=== PATIENT | female | born 1960 | race Caucasian/White ===

== ENCOUNTER 2016-11-14 17:14 | Inpatient (IN) | payer OTHER ==
[~2016-11-14] VITALS: Ht 167.6 cm; Wt 54.0 kg
[~2016-11-14 17:14] MED LIST: LORT5TAB PO; Z.0.NO CURRENT MEDS; ZOFR8TAB4 SL
[2016-11-14 17:16] VITALS: BP 145/79; PULSE 100; RESP 20; TEMP 97.4; O2SAT 98
--- NOTE | 2016-11-14 18:51 | RADRPT ---
EXAM DATE/TIME: 11/14/2016 18:37 [facility] COMPARISON: No previous studies available for comparison. INDICATIONS : Left femur pain after fall. MEDICAL HISTORY : None. SURGICAL HISTORY : None. ENCOUNTER: Initial ACUITY: 1 day PAIN SCORE: 10/10 LOCATION: Left proximal femur. FINDINGS: Two view examination of the left femur demonstrates a faint nondisplaced fracture through the supratr ochanteric region of the femur. The femoral head remains within the acetabulum. The shaft and distal femur appear to be grossly intact.. CONCLUSION: Faint nondisplaced fracture through the supratrochanteric region of the femur. Venkatesh Santos MD on November 14, 2016 at 18:48 Board Certified Radiologist. This report was verified electronically.
--- NOTE | 2016-11-14 18:58 | PD ---
HPI Chief Complaint: Fall Time Seen by Provider: 18:20 Travel History International Travel<30 days: No Contact w/Intl Traveler<30days: No Traveled to known affect area: No History of Present Illness HPI Patient is a 56-year-old female presenting to the emergency department evaluation of left hip and leg pain after sustaining a mechanical fall approximately an hour and half prior to arrival. Patient states she was walking when she tripped in a parking lot landing on her left side. She denies any head injury or loss of consciousness. She states it is painful to walk. She reports the pain as a 6 out of 10, she has not taken anything for the pain since fall happened. [facility] Past Medical History Medical History: Denies Significant Hx Menopausal: Yes Social History Alcohol Use: No Tobacco Use: Yes (ONE PACK DAILY) Allergies-Medications (Allergen,Severity, Reaction): Coded Allergies: Lortab (Verified Allergy, Severe, SWELLING, 11/14/16) Penicillin (Verified Allergy, Severe, SWELLING, 11/14/16) Reported Meds & Prescriptions Reported Meds & Active Scripts Active No Active Prescriptions or Reported Medications Review of Systems Except as stated in HPI: all other systems reviewed are Neg Musculoskeletal: Positive: Myalgias, Pain Skin: Positive Change in Pigmentation Physical Exam Narrative GENERAL: Well-developed, well-nourished, alert female. Resting comfortably in no acute distress. SKIN: Warm and dry. The most is noted to the lateral aspect of the left upper thigh. Superficial abrasions to dorsal aspect of left hand HEAD: Atraumatic. Normocephalic. EYES: Pupils equal and round. No scleral icterus. No injection or drainage. ENT: No nasal bleeding or discharge. Mucous membranes pink and moist. NECK: Trachea midline. No JVD. CARDIOVASCULAR: Regular rate and rhythm. No murmur appreciated. RESPIRATORY: No accessory muscle use. Clear to auscultation. Breath sounds equal bilaterally. GASTROINTESTINAL: Abdomen soft, non-tender, nondistended. Hepatic and splenic margins not palpable. MUSCULOSKELETAL: No obvious deformities. No clubbing. No cyanosis. Mild edema noted to the left upper thigh. 5/5 muscle strength in bilateral lower extremities. No obvious deformities noted, no leg length discrepancy noted. Patient is neurovascularly intact. NEUROLOGICAL: Awake and alert. No obvious cranial nerve deficits. Motor grossly within normal limits. Normal speech. PSYCHIATRIC: Appropriate mood and affect; insight and judgment normal. Data Data Last Documented VS Vital Signs Date Time Temp Pulse Resp B/P Pulse Ox O2 Delivery O2 Flow Rate FiO2 11/14/16 17:16 97.4 100 20 145/79 98 Room Air Orders Femur (Ap & Lat/2vws) (11/14/16 ) Hip, Uni(Ap&Lat) Wo Ap Pelvis (11/14/16 ) Complete Blood Count With Diff (11/14/16 19:08) Comprehensive Metabolic Panel (11/14/16 19:08) Act Partial Throm Time (Ptt) (11/14/16 19:08) Prothrombin Time / Inr (Pt) (11/14/16 19:08) Electrocardiogram (11/14/16 ) Chest, Single Ap (11/14/16 ) Iv Access Insert/Monitor (11/14/16 19:08) Ondansetron Inj (Zofran Inj) (11/14/16 19:30) Morphine Inj (Morphine Inj) (11/14/16 19:30) Admit Order (Ed Use Only) (11/14/16 20:06) Labs Laboratory Tests Test 11/14/16 19:20 White Blood Count 8.9 TH/MM3 Red Blood Count 4.65 MIL/MM3 Hemoglobin 15.0 GM/DL Hematocrit 42.6 % Mean Corpuscular Volume 91.6 FL Mean Corpuscular Hemoglobin 32.2 PG Mean Corpuscular Hemoglobin 35.1 % Concent Red Cell Distribution Width 12.7 % Platelet Count 217 TH/MM3 Mean Platelet Volume 8.1 FL Neutrophils (%) (Auto) 72.3 % Lymphocytes (%) (Auto) 20.6 % Monocytes (%) (Auto) 5.4 % Eosinophils (%) (Auto) 1.3 % Basophils (%) (Auto) 0.4 % Neutrophils # (Auto) 6.4 TH/MM3 Lymphocytes # (Auto) 1.8 TH/MM3 Monocytes # (Auto) 0.5 TH/MM3 Eosinophils # (Auto) 0.1 TH/MM3 Basophils # (Auto) 0.0 TH/MM3 CBC Comment DIFF FINAL Differential Comment Prothrombin Time 10.9 SEC Prothromb Time International 1.0 RATIO Ratio Activated Partial 27.1 SEC Thromboplast Time Sodium Level 140 MEQ/L Potassium Level 3.6 MEQ/L Chloride Level 105 MEQ/L Carbon Dioxide Level 26.8 MEQ/L Anion Gap 8 MEQ/L Blood Urea Nitrogen 14 MG/DL Creatinine 0.72 MG/DL Estimat Glomerular Filtration 84 ML/MIN Rate Random Glucose 106 MG/DL Calcium Level 9.1 MG/DL Total Bilirubin 0.3 MG/DL Aspartate Amino Transf 24 U/L (AST/SGOT) Alanine Aminotransferase 25 U/L (ALT/SGPT) Alkaline Phosphatase 73 U/L Total Protein 7.8 GM/DL Albumin 4.0 GM/DL MDM Medical Decision Making Medical Screen Exam Complete: Yes Emergency Medical Condition: Yes Interpretation(s) Vital Signs Date Time Temp Pulse Resp B/P Pulse Ox O2 Delivery O2 Flow Rate FiO2 11/14/16 17:16 97.4 100 20 145/79 98 Room Air Differential Diagnosis Contusion versus hematoma versus fracture versus sprain versus strain versus abrasion versus other Narrative Course Patient is a 56-year-old female presenting to the emergency department for evaluation of left hip and leg pain after sustaining a mechanical fall at approximately 5 PM this evening. Patient is neurologically and neurovascularly intact. Imaging ordered and pending. Imaging of the left hip shows faint nondisplaced fracture through the supratrochanteric region of the femur. Dr. Lupe breaux Pt has been NPO since 2pm. Care of pt signed out to Antione IRVING Scripts No Active Prescriptions or Reported Meds Augusta Castro Nov 14, 2016 18:58
--- NOTE | 2016-11-14 19:01 | RADRPT ---
EXAM DATE/TIME: 11/14/2016 18:37 [facility] COMPARISON: No previous studies available for comparison. INDICATIONS : Left hip pain after fall. MEDICAL HISTORY : None. SURGICAL HISTORY : None. ENCOUNTER: Initial ACUITY: 1 day PAIN SCORE: 10/10 LOCATION: Left hip. FINDINGS: A two view examination of the left hip was performed. There is a faint nondisplaced fracture through the supratrochanteric region of the left femur. The femoral head remains within the acetabulum. The b kaylee structures of the pelvis are grossly intact.. CONCLUSION: Faint nondisplaced fracture through the supratrochanteric region of the left femur. Venkatesh Santos MD on November 14, 2016 at 18:59 Board Certified Radiologist. This report was verified electronically.
--- NOTE | 2016-11-14 19:25 | PD ---
Physical Exam Date Seen by Provider: Nov 14, 2016 Time Seen by Provider: 19:23 Data Data Last Documented VS Vital Signs Date Time Temp Pulse Resp B/P Pulse Ox O2 Delivery O2 Flow Rate FiO2 11/14/16 17:16 97.4 100 20 145/79 98 Room Air Orders Femur (Ap & Lat/2vws) (11/14/16 ) Hip, Uni(Ap&Lat) Wo Ap Pelvis (11/14/16 ) Complete Blood Count With Diff (11/14/16 19:08) Comprehensive Metabolic Panel (11/14/16 19:08) Act Partial Throm Time (Ptt) (11/14/16 19:08) Prothrombin Time / Inr (Pt) (11/14/16 19:08) Electrocardiogram (11/14/16 ) Chest, Single Ap (11/14/16 ) Iv Access Insert/Monitor (11/14/16 19:08) Ondansetron Inj (Zofran Inj) (11/14/16 19:30) Morphine Inj (Morphine Inj) (11/14/16 19:30) Admit Order (Ed Use Only) (11/14/16 20:06) Labs Laboratory Tests Test 11/14/16 19:20 White Blood Count 8.9 TH/MM3 Red Blood Count 4.65 MIL/MM3 Hemoglobin 15.0 GM/DL Hematocrit 42.6 % Mean Corpuscular Volume 91.6 FL Mean Corpuscular Hemoglobin 32.2 PG Mean Corpuscular Hemoglobin 35.1 % Concent Red Cell Distribution Width 12.7 % Platelet Count 217 TH/MM3 Mean Platelet Volume 8.1 FL Neutrophils (%) (Auto) 72.3 % Lymphocytes (%) (Auto) 20.6 % Monocytes (%) (Auto) 5.4 % Eosinophils (%) (Auto) 1.3 % Basophils (%) (Auto) 0.4 % Neutrophils # (Auto) 6.4 TH/MM3 Lymphocytes # (Auto) 1.8 TH/MM3 Monocytes # (Auto) 0.5 TH/MM3 Eosinophils # (Auto) 0.1 TH/MM3 Basophils # (Auto) 0.0 TH/MM3 CBC Comment DIFF FINAL Differential Comment Prothrombin Time 10.9 SEC Prothromb Time International 1.0 RATIO Ratio Activated Partial 27.1 SEC Thromboplast Time Sodium Level 140 MEQ/L Potassium Level 3.6 MEQ/L Chloride Level 105 MEQ/L Carbon Dioxide Level 26.8 MEQ/L Anion Gap 8 MEQ/L Blood Urea Nitrogen 14 MG/DL Creatinine 0.72 MG/DL Estimat Glomerular Filtration 84 ML/MIN Rate Random Glucose 106 MG/DL Calcium Level 9.1 MG/DL Total Bilirubin 0.3 MG/DL Aspartate Amino Transf 24 U/L (AST/SGOT) Alanine Aminotransferase 25 U/L (ALT/SGPT) Alkaline Phosphatase 73 U/L Total Protein 7.8 GM/DL Albumin 4.0 GM/DL [facility] Medical Record Reviewed: Yes Supervised Visit with SANCHEZ: No Interpretation(s) CBC & BMP Diagram 11/14/16 19:20 Last 24 hours Impressions Hip X-Ray 11/14/16 0000 Signed Impressions: Service Date/Time: Monday, November 14, 2016 18:37 - CONCLUSION: Faint nondisplaced fracture through the supratrochanteric region of the left femur. Venkatesh Santos MD Femur X-Ray 11/14/16 0000 Signed Impressions: Service Date/Time: Monday, November 14, 2016 18:37 - CONCLUSION: Faint nondisplaced fracture through the supratrochanteric region of the femur. Venkatesh Santos MD Differential Diagnosis MDM: High Differential diagnoses: Fracture, sprain, strain, dislocation, contusion, neurovascular injury Narrative Course This is a 56-year-old white female who presents for evaluation of left hip pain after gravitational conflict. X-rays reveal a femoral neck fracture. The case has been discussed with Dr. Camara who feels that the patient should be admitted to the orthopedic service. She has no medical problems and does not take any regular medications. It is noted that the patient is allergic to penicillin and Lortab. IV access is obtained. Routine laboratory tests sent for analysis. The patient states that she is unsure what she can take for pain medication but would like something now. We will give her some Zofran 4 mg and small aliquots of morphine. The case of been discussed with Ariel with Dr. Andrade who is excepted the patient. Diagnosis Primary Impression: Fracture of femoral neck, left, closed Qualified Code: S72.002A - Closed fracture of neck of left femur, initial encounter Admitting Information Admitting Physician Requests: Admit Scripts No Active Prescriptions or Reported Meds Condition: David Woods Nov 14, 2016 19:25
[2016-11-14] MEDS ORDERED: MORPHINE SULFATE 4 MG/ML INJ IV PUSH ONE (19:30)
[2016-11-14] MEDS ORDERED: ONDANSETRON HCL 4 MG/2 ML VIAL IV PUSH ONE (19:30)
--- NOTE | 2016-11-14 19:41 | RADRPT ---
EXAM DATE/TIME: 11/14/2016 19:30 [facility] COMPARISON: No previous studies available for comparison. INDICATIONS : Evaluate for pneumonia, pneumothorax or communicable diseases. Pre-op for left hip surgery. MEDICAL HISTORY : None. SURGICAL HISTORY : None. ENCOUNTER: Initial ACUITY: 1 day PAIN SCORE: 0/10 LOCATION: Bilateral chest FINDINGS: A single view of the chest demonstrates the lungs to be symmetrically aerated without evidence of mas s, infiltrate or effusion. There is hyperaeration bilaterally. The cardiomediastinal contours are un remarkable. Osseous structures are intact. CONCLUSION: No acute disease. Venkatesh Santos MD on November 14, 2016 at 19:39 Board Certified Radiologist. This report was verified electronically.
[2016-11-14 19:58] LABS: AUTOMATED NEUTROPHIL # 6.4 TH/MM3 (1.8-7.7); BASOPHIL % 0.4 % (0.0-2.0); EOSINOPHIL # 0.1 TH/MM3 (0-0.4); EOSINOPHIL % 1.3 % (0.0-4.0); HEMATOCRIT 42.6 % (35.0-46.0); HEMO FLAGS DIFF FINAL; LYMPH % 20.6 % (9.0-44.0); LYMPHOCYTE # 1.8 TH/MM3 (1.0-4.8); MEAN CELL VOLUME 91.6 FL (80.0-100.0); MEAN CORPUSCULAR HEMOGLOBIN 32.2 PG (27.0-34.0); MEAN CORPUSCULAR HGB CONC 35.1 % (32.0-36.0); MONO % 5.4 % (0.0-8.0); NEUT % 72.3 % (16.0-70.0); PLATELET COUNT 217 TH/MM3 (150-450); RED BLOOD COUNT 4.65 MIL/MM3 (4.00-5.30); RED CELL DISTRIBUTION WIDTH 12.7 % (11.6-17.2); WHITE BLOOD COUNT 8.9 TH/MM3 (4.0-11.0)
[2016-11-14 20:07] LABS: APTT (PATIENT) 27.1 SEC (24.3-30.1); PROTHROMBIN TIME - PATIENT 10.9 SEC (9.8-11.6)
[2016-11-14 20:20] VITALS: BP 132/72; PULSE 87; RESP 20; O2SAT 98
[2016-11-14] MEDS ORDERED: oxyCODONE/ACETAMINOPHEN 5 MG/325 MG TAB PO PRN (20:30)
[2016-11-14] MEDS ORDERED: SODIUM CHLORIDE 0.9% FLUSH 5 ML FLUSH IVF PRN (20:30)
[2016-11-14] MEDS ORDERED: ONDANSETRON ODT 4 MG TAB PO PRN (20:30)
[2016-11-14] MEDS ORDERED: Post-op Orders (for Pharmacy) MISC XX ONE (20:30)
[2016-11-14 20:45] LABS: ALKALINE PHOSPHATASE 73 U/L (45-117); ALT (GPT) 25 U/L (10-53); ANION GAP 8 MEQ/L (5-15); AST (GOT) 24 U/L (15-37); BICARBONATE 26.8 MEQ/L (21.0-32.0); BLOOD UREA NITROGEN 14 MG/DL (7-18); CHLORIDE 105 MEQ/L (98-107); GLOMERULAR FILTRATION RATE 84 ML/MIN (>89); POTASSIUM 3.6 MEQ/L (3.5-5.1); SODIUM (NA) 140 MEQ/L (136-145); TOTAL BILIRUBIN ADULT 0.3 MG/DL (0.2-1.0)
[2016-11-14] MEDS: SODIUM CHLORIDE 0.9% FLUSH 5 ML FLUSH IVF SCH (21:32)
[2016-11-14] MEDS: MORPHINE SULFATE 4 MG/ML INJ IV PUSH PRN (22:21)
[2016-11-14 23:58] VITALS: BP 118/65; PULSE 89; RESP 16; TEMP 97.7; O2SAT 97
[2016-11-15] VITALS (7 sets, daily range): BP systolic 107–142; BP diastolic 63–80; PULSE 81–87; RESP 16–18; TEMP 95.8–97.8; O2SAT 93–100
[2016-11-15] MEDS ORDERED: INSULIN HUMAN REGULAR 1,000 UNITS/10 ML VIAL SQ PRN (00:30)
[2016-11-15] MEDS: SODIUM CHLORID 0.9% 500 ML IV SCH ×2 (00:30→17:10)
[2016-11-15] MEDS: MORPHINE SULFATE 4 MG/ML INJ IV PUSH PRN ×2 (02:43→06:09)
[2016-11-15] MEDS: LACTATED RINGER'S 1000 ML IV SCH (02:44)
--- NOTE | 2016-11-15 06:56 | PD.ORT.PN ---
Subjective Subjective Remarks Pain control overnight Objective Vitals Vital Signs Date Time Temp Pulse Resp B/P Pulse Ox O2 Delivery O2 Flow Rate FiO2 11/15/16 04:10 96.7 81 16 118/63 93 11/14/16 23:58 97.7 89 16 118/65 97 11/14/16 20:20 87 20 132/72 98 Room Air 11/14/16 17:16 97.4 100 20 145/79 98 Room Air I/O 11/14/16 11/14/16 11/14/16 11/15/16 11/15/16 11/15/16 07:00 15:00 23:00 07:00 15:00 23:00 Intake Total 66 ml Balance 66 ml Intake Oral 0 ml IV Total 66 ml # Voids 1 # Bowel Movements 0 Result Diagram: 11/14/160 11/14/160 Other Results Laboratory Tests Test 11/14/16 19:20 Prothrombin Time 10.9 SEC (9.8-11.6) Prothromb Time International 1.0 RATIO Ratio Imaging Last 72 hours Impressions Hip X-Ray 11/14/16 0000 Signed Impressions: Service Date/Time: Monday, November 14, 2016 18:37 - CONCLUSION: Faint nondisplaced fracture through the supratrochanteric region of the left femur. Venkatesh Santos MD Femur X-Ray 11/14/16 0000 Signed Impressions: Service Date/Time: Monday, November 14, 2016 18:37 - CONCLUSION: Faint nondisplaced fracture through the supratrochanteric region of the femur. Venkatesh Santos MD Chest X-Ray 11/14/16 0000 Signed Impressions: Service Date/Time: Monday, November 14, 2016 19:30 - CONCLUSION: No acute disease. Venkatesh Santos MD Objective Remarks Bilateral upper extremities: Full range of motion neurovascularly intact Right lower extremity: Full range of motion and neurovascularly intact Left lower extremity: Pain to palpation and movement of hip. She has no tenderness at knee or ankle range of motion. Distally she has intact sensation with good capillary refills Assessment & Plan Assessment and Plan Left intertrochanteric femur fracture Surgery this morning for intramedullary nail fixation Sign consents Nothing by mouth Case management for home versus rehabilitation discharge Dudley Rodriguez Jr. Nov 15, 2016 06:56
[2016-11-15] MEDS ORDERED: GENTAMICIN SULFATE 80 MG/2 ML VIAL ONE (08:55)
[2016-11-15] MEDS ORDERED: CLINDAMYCIN PHOS 600 MG/4 ML VIAL ONE (08:55)
[2016-11-15] MEDS ORDERED: VANCOMYCIN HCL 1000 MG VIAL ONE (08:55)
[2016-11-15] MEDS ORDERED: BUPIVACAINE/EPINEPHRINE 0.25% PF 10 ML VIAL ONE (08:55)
[2016-11-15] MEDS ORDERED: SODIUM CHLOR 0.9% 250 ML INJ 250 ML ONE (08:56)
[2016-11-15] MEDS ORDERED: FAMOTIDINE 20 MG/2 ML VIAL ONE (08:56)
[2016-11-15] MEDS ORDERED: MIDAZOLAM HCL 2 MG/2 ML VIAL ONE (08:56)
[2016-11-15] MEDS ORDERED: DEXAMETHASONE SOD PHOS 4 MG/ML VIAL ONE (08:57)
[2016-11-15] MEDS: SODIUM CHLORIDE 0.9% FLUSH 5 ML FLUSH IVF SCH ×3 (09:00→22:00)
--- NOTE | 2016-11-15 09:49 | MH ---
cc: REID CAVAZOS DATE OF ADMISSION: 11/14/2016 ADMITTING DIAGNOSIS: Left hip intertrochanteric fracture. HISTORY Angelique is a 56-hour female who had a mechanical fall. She was walking when she tripped in a parking lot. She landed on her left-side and hip. She tried to stand but had difficulty ambulating secondary hip pain. She did not hit her head. She had no dizziness or syncope. Her hip pain is worse with movement or weightbearing. She presented emergency room x-rays revealed a nondisplaced left hip intertrochanteric fracture. She is currently awake and alert on the orthopedic floor. Only complaints are her left hip. PAST MEDICAL HISTORY ALLERGIES PENICILLIN LORTAB MEDICATIONS None prior to hospitalization. Please see EMR for inpatient medications. This was reviewed. SURGERIES None SOCIAL HISTORY The patient denies alcohol or drug use. She smokes a pack a day. FAMILY HISTORY: Her family history is noncontributory. She has no family history of anesthetic complications. REVIEW OF SYSTEMS The patient denies headache, visual changes, neck pain, chest pain, shortness of breath, abdominal pain, nausea or recent weight loss. She complains of left hip pain. Pain is worse with movement. PHYSICAL EXAMINATION IN GENERAL: The patient is a well-developed, well-nourished 56-year female in no acute distress. She is awake and alert. She is alert and x3. VITAL SIGNS: Temperature 97.2, pulse 81, respirations 18, blood pressure 107/65, O2 sat 96% on room air. HEAD, EYES, EARS, NOSE, AND THROAT: The patient is normocephalic. Pupils are equal. NECK: Soft, nontender. Trachea is midline. ABDOMEN: Soft, nontender, nondistended. EXTREMITIES: Examination of bilateral upper extremities reveals no pain with shoulder or wrist motion. She has intact sensation in all fingers, good capillary refill in all fingers. Skin is intact. Radial pulses are palpable. Sensation intact in all fingers. Examination of right leg reveals no pain with hip, knee or ankle motion. Skin is intact. Dorsalis pedis pulses palpable. Sensation is intact. Examination of left leg reveals pain with any hip motion. She has no tenderness her knee tibia or ankle. Skin is intact. Dorsalis pedis pulses palpable. Sensation is intact both feet. X-RAYS X-rays of left hip reviewed, x-rays revealed a minimally displaced fracture through the left hip intertrochanteric region. IMPRESSION Minimally displaced left hip intertrochanteric fracture. PLAN The treatment options were 1discussed with the patient. At this point I would recommend reduction, intramedullary nail fixation. Risks of surgery include bleeding, infection, injury to arteries, nerves or blood vessels, nonunion, malunion, painful hardware hip bursitis as well as medical complications associated anesthesia. All questions were answered. I will plan on surgery today. A mid-level provider in my office (nurse practitioner or physician hospital administrative assistant) may see this patient on follow-up visits and continue to implement the objectives of this plan including: Starting or adjusting medications, injections , cast application, orthotics, brace application, physical therapy, radiological studies (including x-ray, MRI, CT, ultrasound, bone scan), vascular studies, neurologic studies, specialist consultation, and proceeding with surgical management, as appropriate. MD ALONDRA Capone/philomena /9:22 AM /9:41 AM MTDDinh
[2016-11-15] MEDS ORDERED: PERC5TAB12 PO (10:04)
[2016-11-15] MEDS ORDERED: XARE10TA PO (10:04)
--- NOTE | 2016-11-15 10:06 | PD.OP ---
cc: Ken Andrade MD Operative Report Date of Surgery: Nov 15, 2016 Preoperative Diagnosis: Left hip intertrochanteric fracture Postoperative Diagnosis: Procedure: Left hip intramedullary nail fixation of intertrochanteric fracture Anesthesia: Gen. Surgeon: Ken Andrade Office Bookkeeper(s): LISA De La O PA-C The surgical procedure was assisted by my physician customer assistant. My P.A. presence was necessary throughout this case for the manipulation and positioning of the surgical extremity. My P.A. was assisting me throughout the duration of this procedure. The skill set of a physician customer assistant was medically necessary to complete this procedure. During the surgical case the surgical consultant was working at the back table and the physician customer assistant was directly assisting me. Operation and Findings: Implants used: 10 mm 130 Synthes TFNA short troch nail Plan of activity: Weight-bear as tolerated Patient was seen and evaluated preoperatively. The patient has significant hip pain from intertrochanteric hip fracture. The risk and benefits of surgery were discussed in depth with the patient to include bleeding infection nonunion malunion and need for hip replacement painful hardware as well as medical competitions including but not stroke heart attack and . Informed consent was obtained. Operative site was marked. Patient was brought to the operating room and placed on fracture table. IV sedation was administered by anesthesiologist. Timeout procedure was performed. Hip and leg were prepped with alcohol followed by DuraPrep and draped in the usual sterile fashion. IV antibiotics were given prior to incision. Procedure began with reduction of fracture. Traction was applied. The leg was manipulated to achieve reduction. Excellent reduction was achieved. Fluoroscopy was used to confirm reduction. A three inch incision was made proximal to the trochanter. Subcutaneous tissue was dissected bluntly. Guidepin was placed at the tip of the trochanter and advanced into the femoral canal. Fluoroscopy confirmed appropriate guidepin placement. A opening reamer was placed over the guidepin. The Synthes TFNA nail was attached to the insertion handle. Nail was now placed through the tip of the trochanter into the femoral canal. Fluoroscopy confirmed appropriate nail placement. A second incision was made over the lateral thigh. Cannulas were placed through the insertion handle down to the femur. Guidepin was now placed through the femoral nail into the center of the femoral head. Fluoroscopy confirmed appropriate guidepin placement. Screw length was measured. Cannulated drill was placed over the guidepin. Appropriate length lag screw was now placed. Traction was released and compression was applied. The set screw was now tightened in dynamic mode. Using the insertion handle as a guide a distal interlocking screw was drilled and placed. Final fluoroscopy revealed well aligned fracture with well-placed hardware. Incision was closed with 3-0 Vicryl and javier. Sterile dressings were applied. Patient was awakened and transferred to recovery room. Ken Andrade MD Nov 15, 2016 10:06
--- NOTE | 2016-11-15 10:08 | EKG ---
Date Performed: 11/14/2016 Time Performed: 19:18:05 PTAGE: 56 years EKG: Sinus rhythm nonspecific st changes ABNORMAL ECG NO PREVIOUS TRACING DOCTOR: Rachid Montalvo Interpretating Date/Time 11/15/2016 10:06:44
[2016-11-15] MEDS ORDERED: SODIUM CHLORIDE 0.9% FLUSH 5 ML FLUSH IVF PRN (10:15)
[2016-11-15] MEDS ORDERED: MORPHINE SULFATE 4 MG/ML INJ IV PUSH PRN (10:15)
[2016-11-15] MEDS ORDERED: diphenhydrAMINE HCL 25 MG CAP PO PRN (10:15)
[2016-11-15] MEDS ORDERED: ERGOCALCIFEROL (VIT D2) 50,000 UNIT CAP PO ONE (10:15)
[2016-11-15] MEDS ORDERED: *morphine SULFATE 8 MG/ML PERIprocedure ONLY ONE (10:28)
[2016-11-15] MEDS ORDERED: DO NOT ADM ANY ANTICOAGULANT DRUGS XX PRN (10:30)
[2016-11-15] MEDS: oxyCODONE/ACETAMINOPHEN 7.5 MG/325 MG TAB PO PRN ×3 (11:15→22:00)
[2016-11-15] MEDS: CALCIUM/VITAMIN D 250 MG/125 U TAB PO SCH ×2 (13:49→18:22)
[2016-11-15] MEDS ORDERED: PROPOFOL 200 MG/20 ML AMP IV ONE (14:50)
[2016-11-15] MEDS ORDERED: ePHEDrine/NS 25 MG/5 ML SYR IV ONE (14:50)
[2016-11-15] MEDS ORDERED: ONDANSETRON HCL 4 MG/2 ML VIAL IV PUSH ONE (14:50)
--- NOTE | 2016-11-15 15:28 | RADRPT ---
EXAM DATE/TIME: 11/15/2016 09:56 [facility] COMPARISON: HIP LEFT (AP&LAT 2/3VWS) WO AP PELVIS, November 14, 2016, 18:37. INDICATIONS : ORIF left hip troch nail. MEDICAL HISTORY : None. SURGICAL HISTORY : None. ENCOUNTER: Subsequent ACUITY: 2 days PAIN SCORE: Non-responsive. LOCATION: Left hip. FINDINGS: A two view examination of the left hip was performed. There has been interval repair of the left side d hip fracture with medullary jm and osseous screw. Fracture fragments are in excellent anatomic ali gnment. CONCLUSION: Interval internal fixation of the left hip fracture as above. Fracture fragments are in excellen t anatomic alignment Sharath Domingo MD on November 15, 2016 at 15:25 Board Certified Radiologist. This report was verified electronically.
[2016-11-16] VITALS (7 sets, daily range): BP systolic 106–140; BP diastolic 58–75; PULSE 75–91; RESP 16–18; TEMP 96–96.8; O2SAT 96–99
[2016-11-16] MEDS: oxyCODONE/ACETAMINOPHEN 7.5 MG/325 MG TAB PO PRN ×3 (04:54→19:37)
[2016-11-16 06:20] LABS: HEMATOCRIT 33.3 % (35.0-46.0); REVIEW FLAG FINAL
[2016-11-16] MEDS: SODIUM CHLORIDE 0.9% FLUSH 5 ML FLUSH IVF SCH ×4 (08:19→19:37)
[2016-11-16] MEDS: ENOXAPARIN SODIUM 30 MG/0.3 ML SYRINGE SQ SCH (08:20)
[2016-11-16] MEDS: CALCIUM/VITAMIN D 250 MG/125 U TAB PO SCH ×3 (08:20→17:09)
[2016-11-16] MEDS: CHOLECALCIFEROL (VIT D3) 5000 UNIT CAP PO SCH (08:20)
--- NOTE | 2016-11-16 10:19 | PD.ORT.PN ---
Subjective Subjective Remarks Pain control overnight Objective Vitals Vital Signs Date Time Temp Pulse Resp B/P Pulse Ox O2 Delivery O2 Flow Rate FiO2 11/16/16 08:55 96 21 11/16/16 08:00 96.6 85 18 106/74 97 11/16/16 04:30 96.4 91 16 129/69 96 11/16/16 00:35 96.7 83 16 111/59 96 11/15/16 23:00 18 11/15/16 20:06 96.4 84 18 134/71 100 11/15/16 19:45 98 Nasal Cannula 11/15/16 17:03 99 Nasal Cannula 2.00 11/15/16 16:00 97.8 87 18 142/80 100 11/15/16 11:00 95.8 86 18 140/69 100 11/15/16 10:48 88 16 137/80 99 Nasal Cannula 2 11/15/16 10:30 93 16 144/82 97 Nasal Cannula 2 I/O 11/15/16 11/15/16 11/15/16 11/16/16 11/16/16 11/16/16 07:00 15:00 23:00 07:00 15:00 23:00 Intake Total 66 ml 1280 ml 480 ml 240 ml Output Total 100 ml Balance 66 ml 1180 ml 480 ml 240 ml Intake Oral 0 ml 480 ml 480 ml 240 ml IV Total 66 ml Other 800 ml Output Urine Total 0 ml Estimated Blood Loss 100 ml # Voids 1 1 4 2 # Bowel Movements 0 0 0 0 Result Diagram: 11/16/16 0550 11/14/16 1920 Imaging Last 72 hours Impressions Hip X-Ray 11/14/16 0000 Signed Impressions: Service Date/Time: Monday, November 14, 2016 18:37 - CONCLUSION: Faint nondisplaced fracture through the supratrochanteric region of the left femur. Venkatesh Santos MD Femur X-Ray 11/14/16 0000 Signed Impressions: Service Date/Time: Monday, November 14, 2016 18:37 - CONCLUSION: Faint nondisplaced fracture through the supratrochanteric region of the femur. Venkatesh Santos MD Chest X-Ray 11/14/16 0000 Signed Impressions: Service Date/Time: Monday, November 14, 2016 19:30 - CONCLUSION: No acute disease. Venkatesh Santos MD Objective Remarks Bilateral upper extremities: Full range of motion neurovascularly intact Right lower extremity: Full range of motion and neurovascularly intact Left lower extremity: Clean dry dressings intact. Minimal swelling. Distally intact sensation good capillary refills and strong dorsiflexion and plantar flexion of foot Assessment & Plan Assessment and Plan Left intertrochanteric femur fracture status post intramedullary nail POD 1 Physical therapy weightbearing as tolerated Walker training Case management for home health care discharge tomorrow if cleared by PT Lovenox then convert to Xarelto at discharge Incentive spirometry Follow-up with Dr. Andrade or PA in 2 weeks Dudley Rodriguez Jr. Nov 16, 2016 10:19
[2016-11-16] MEDS ORDERED: WALKER WHEELS/F1 MIS (10:20)
[2016-11-16] MEDS: LACTATED RINGER'S 1000 ML IV SCH (20:43)
[2016-11-17] MEDS ORDERED: SENNOSIDES 8.6 MG TAB PO PRN (00:15)
[2016-11-17] MEDS ORDERED: MAGNESIUM HYDROXIDE SUSP 30 ML CUP PO PRN (00:15)
[2016-11-17 00:29] VITALS: BP 109/59; PULSE 89; RESP 16; TEMP 97.3; O2SAT 95
[2016-11-17] MEDS: oxyCODONE/ACETAMINOPHEN 7.5 MG/325 MG TAB PO PRN (05:10)
--- NOTE | 2016-11-17 06:46 | PD.ORT.PN ---
Subjective Subjective Remarks POD 2 s/p IMN left hip doing well. pain controlled. reports stiffness in hip. but otherwise, ambulating well and ready to go home Objective Vitals Vital Signs Date Time Temp Pulse Resp B/P Pulse Ox O2 Delivery O2 Flow Rate FiO2 11/17/16 00:29 97.3 89 16 109/59 95 11/16/16 20:35 96.8 80 17 140/67 96 11/16/16 16:00 96.5 82 18 119/75 97 11/16/16 12:00 96.0 75 18 130/58 99 11/16/16 08:55 96 21 11/16/16 08:00 96.6 85 18 106/74 97 I/O 11/16/16 11/16/16 11/16/16 11/17/16 11/17/16 11/17/16 07:00 15:00 23:00 07:00 15:00 23:00 Intake Total 960 ml 480 ml 240 ml Balance 960 ml 480 ml 240 ml Intake Oral 960 ml 480 ml 240 ml # Voids 4 4 2 # Bowel Movements 0 0 Result Diagram: 11/16/16 0550 11/14/16 1920 Imaging Last 72 hours Impressions Hip X-Ray 11/14/16 0000 Signed Impressions: Service Date/Time: Monday, November 14, 2016 18:37 - CONCLUSION: Faint nondisplaced fracture through the supratrochanteric region of the left femur. Venkatesh Santos MD Femur X-Ray 11/14/16 0000 Signed Impressions: Service Date/Time: Monday, November 14, 2016 18:37 - CONCLUSION: Faint nondisplaced fracture through the supratrochanteric region of the femur. Venkatesh Santos MD Chest X-Ray 11/14/16 0000 Signed Impressions: Service Date/Time: Monday, November 14, 2016 19:30 - CONCLUSION: No acute disease. Venkatesh Santos MD Objective Remarks Bilateral upper extremities: Full range of motion neurovascularly intact Right lower extremity: Full range of motion and neurovascularly intact Left lower extremity: Clean dry dressings intact. Minimal swelling. Distally intact sensation good capillary refills and strong dorsiflexion and plantar flexion of foot Assessment & Plan Assessment and Plan Left intertrochanteric femur fracture status post intramedullary nail POD 2 Physical therapy weightbearing as tolerated Walker training Case management for home health care discharge tomorrow if cleared by PT Lovenox then convert to Xarelto at discharge Incentive spirometry Follow-up with Dr. Andrade or [place] in 2 weeks -discharge home today with [facility] Bennie Gillette Nov 17, 2016 06:46
--- NOTE | 2016-11-17 06:49 | HHI.DS ---
Discharge Summary Admission Date Nov 14, 2016 at 20:07 Discharge Date: Nov 17, 2016 Admitting Diagnosis Left nondisplaced intertochanteric hip fracture Diagnosis: (1) Intertrochanteric fracture of left femur Diagnosis: Principal Procedures IM nailing of left intertroch hip fx CBC/BMP: 11/16/16 0550 11/14/16 1920 Significant Findings Laboratory Tests Test 11/14/16 11/15/16 11/16/16 19:20 15:28 05:50 Neutrophils (%) (Auto) 72.3 % (16.0-70.0) Estimat Glomerular Filtration 84 ML/MIN (>89) Rate 25-Hydroxy Vitamin D Total 11.3 ng/ML (30-100) Hematocrit 33.3 % (35.0-46.0) PE at Discharge Bilateral upper extremities: Full range of motion neurovascularly intact Right lower extremity: Full range of motion and neurovascularly intact Left lower extremity: Clean dry dressings intact. Minimal swelling. Distally intact sensation good capillary refills and strong dorsiflexion and plantar flexion of foot Hospital Course Patient suffered a fall at home on 11/14/16. Reported left hip pain and brought to emergency dept. Admitted for surgical intervention. Underwent IM nailing of left hip on 11/14/16. Tolerated procedure well. admitted to N. was out of bed and full weight bearing with walker on POD 1. Daily dressing changes initiated on POD2. Home health care was set up and patient was fit for discharge home. She will be full weight bearing and follow up in office with Dr Jimenez or MARIA FERNANDA in 2 weeks Pt Condition on Discharge: Good Discharge Disposition: Disch w/ Home Health Serv Discharge Instructions Diet Instructions: As Tolerated, No Restrictions Activities You Can Perform: Full Weight Bearing Follow up Referrals: Orthopedics - 2 Weeks [facility] with Ken Jimenez MD New Medications: Oxycodone-Acetaminophen (Percocet) 5-325 mg Tab 1 TAB PO Q4H PRN PAIN #60 Ref 0 TAB Rivaroxaban (Xarelto) 10 Mg Tab 10 MG PO DAILY Blood Clot Prevention #14 Ref 0 TAB Walker with Front Wheels (Walker with Front Wheels) 1 Mis Mis 1 EA .ROUTE DIRECTED #1 Ref 0 EA Bennie Gillette Nov 17, 2016 06:49
[2016-11-17 07:54] VITALS: BP 100/53; PULSE 85; RESP 18; TEMP 96.9; O2SAT 95
[2016-11-17] MEDS: CALCIUM/VITAMIN D 250 MG/125 U TAB PO SCH (08:58)
[2016-11-17] MEDS: CHOLECALCIFEROL (VIT D3) 5000 UNIT CAP PO SCH (08:58)
[2016-11-17] MEDS: ENOXAPARIN SODIUM 30 MG/0.3 ML SYRINGE SQ SCH (08:59)
[2016-11-17] MEDS: SODIUM CHLORIDE 0.9% FLUSH 5 ML FLUSH IVF SCH ×2 (08:59→09:00)
--- NOTE | 2016-11-17 14:11 | HHI.FF ---
Face to Face Verification Diagnosis: (1) Intertrochanteric fracture of left femur Physical Therapy Gait training Hip: Hip fracture, Protocol: Left, Progress to weight bearing Left LE Weight Bearing: WB as tolerated Nursing Dressing Changes: Daily dressing change, 4x4s, Paper tape, Xeroform I have seen patient Angelique Gee on 11/17/16. My clinical findings support the need for the requested home health care services because: Ltd mobility - disease progression I certify that my clinical findings support that this patient is homebound because: Post-op weakness Bennie Gillette Nov 17, 2016 14:11
== END 2016-11-17 12:59 | disposition home health service (06) | DRG 482 ==
LOC: NEPB 17:14 → NEDA 20:07 → N06B 11-15 00:02
PROVIDERS: ADMIT Orthopaedic Surgery Orthopaedic Trauma; ATTEND Orthopaedic Surgery Orthopaedic Trauma
PROC: 0QSC36Z Reposition Left Lower Femur with Intramedullary Internal Fixation Device, Percutaneous Approach (ICD-10-PCS; principal; 2016-11-15 09:08)
DX: S72.22XA Displaced subtrochanteric fracture of left femur, initial encounter for closed fracture (principal); F17.210 Nicotine dependence, cigarettes, uncomplicated; W01.0XXA Fall on same level from slipping, tripping and stumbling without subsequent striking against object, initial encounter; Y92.481 Parking lot as the place of occurrence of the external cause
CPT/HCPCS: 71010; 73502; 73552; 76000; 80053; 82306; 85014; 85018; 85025; 85610; 85730; 86850; 86900; 86901; 93005; 94150; 96374; 96375; C1713; J1100; J1580; J1650; J2250; J2270; J2405; J3010; J3370; J7050; J7120; L1830